=== PATIENT | male | born 1995 ===

== ENCOUNTER 2018-12-30 11:33 | Emergency (ER) | payer OTHER ==
[2018-12-30 11:53] VITALS: BP 148/67
--- NOTE | 2018-12-30 11:57 | UC ---
Skin Complaint HPI - HPI Summary HPI Summary: 23-year-old male who was stung by a bee in his right eye yesterday while at work. He works on a farm. He was sent by his employer today for recheck. He denies any difficulty breathing and no wheezing. - History of Current Complaint Chief Complaint: UCAllergicReaction Time Seen by Provider: 12/30/18 11:49 Stated Complaint: RIGHT EYE BEE STING (W/C) Hx Obtained From: Patient Onset/Duration: Sudden Onset Skin Exposure Onset/Duration: Days Ago - Patient was stung yesterday. Timing: Constant Onset Severity: Mild Current Severity: Mild Pain Intensity: 0 Location: Other - Right upper and lower eyelids. Character: Swelling Aggravating Factor(s): Nothing Alleviating Factor(s): Nothing, Cold Compresses, Other - Patient has not tried any medications however he has applied cold . Associated Signs & Symptoms: Positive: Negative - Allergy/Home Medications Allergies/Adverse Reactions: Allergies Allergy/AdvReac Type Severity Reaction Status Date / Time azithromycin [From Zithromax] Allergy Rash Verified 12/30/18 11:50 Penicillins Allergy Rash Verified 12/30/18 11:50 PMH/Surg Hx/FS Hx/Imm Hx Previously Healthy: Yes - Surgical History Surgical History: None - Family History Known Family History: Positive: Non-Contributory - Social History Alcohol Use: Daily Substance Use Type: None Smoking Status (MU): Heavy Every Day Tobacco Smoker Type: Cigarettes Amount Used/How Often: 1/2 PPD - Immunization History Vaccination Up to Date: Yes Review of Systems All Other Systems Reviewed And Are Negative: Yes Skin: Positive: Other - Swelling both right eyelids. No difficulty with vision. Is Patient Immunocompromised?: No Physical Exam Triage Information Reviewed: Yes Appearance: Well-Appearing, No Pain Distress, Well-Nourished Vital Signs: Initial Vital Signs Temp 97.8 F 12/30/18 11:50 Pulse 73 12/30/18 11:50 Resp 16 12/30/18 11:50 BP 148/67 12/30/18 11:50 Pulse Ox 99 12/30/18 11:50 Vital Signs Reviewed: Yes Eyes: Positive: Conjunctiva Clear, Other: - PERRLA, EOMI, right upper lower eyelids are mildly edematous. ENT: Positive: Pharynx normal, Uvula midline Neck: Positive: Supple, Nontender, No Lymphadenopathy Respiratory: Positive: Lungs clear, Normal breath sounds, No respiratory distress, No accessory muscle use Cardiovascular: Positive: RRR, No Murmur, Pulses Normal, Brisk Capillary Refill Skin: Positive: Other - See above notes Course/Dx - Course Course Of Treatment: Patient is comfortable here and in no distress. - Diagnoses Provider Diagnosis: Insect sting Discharge - Sign-Out/Discharge Documenting (check all that apply): Patient Departure All imaging exams completed and their final reports reviewed: No Studies - Discharge Plan Condition: Fair Disposition: HOME Patient Education Materials: Insect Bite or Sting (ED) Referrals: No Primary Care Phys,NOPCP [Primary Care Provider] - [facility] [Outside] Additional Instructions: May take Benadryl 25 mg to 50 mg every 6 hours over the next day or 2. Apply ice intermittently to the swollen area. Go to the emergency room if you develop any hives, difficulty breathing or wheezing. - Billing Disposition and Condition Condition: FAIR Disposition: Home
== END 2018-12-30 12:03 | disposition home or self-care (01) ==
LOC: UCCORT 11:33
DX: Z51.89 Encounter for other specified aftercare (principal); T63.441A Toxic effect of venom of bees, accidental (unintentional), initial encounter; Y92.79 Other farm location as the place of occurrence of the external cause; F17.210 Nicotine dependence, cigarettes, uncomplicated
CPT/HCPCS: 99201; G0463

== ENCOUNTER 2019-07-30 14:56 | Emergency (ER) | payer OTHER ==
[2019-07-30 15:18] VITALS: BP 147/72
--- NOTE | 2019-07-30 15:32 | UC ---
Lower Extremity/Ankle HPI - HPI Summary HPI Summary: Pt stated he rolled his right ankle yesterday at work. - History of Current Complaint Chief Complaint: UCLowerExtremity Stated Complaint: R ANKLE INJ Time Seen by Provider: 07/30/19 15:30 Hx Obtained From: Patient Onset/Duration: Sudden Onset, Lasting Days Severity Initially: Mild Severity Currently: Mild Pain Intensity: 0 - Allergies/Home Medications Allergies/Adverse Reactions: Allergies Allergy/AdvReac Type Severity Reaction Status Date / Time azithromycin [From Zithromax] Allergy Rash Verified 07/30/19 15:18 Penicillins Allergy Rash Verified 07/30/19 15:18 Home Medications: Home Medications Ibuprofen 1,200 mg PO Q6HR PRN 07/30/19 [History Confirmed 07/30/19] PMH/Surg Hx/FS Hx/Imm Hx Previously Healthy: Yes - Surgical History Surgical History: None - Family History Known Family History: Positive: Non-Contributory - Social History Occupation: Employed Full-time Alcohol Use: Daily Substance Use Type: None Smoking Status (MU): Heavy Every Day Tobacco Smoker Type: Cigarettes Amount Used/How Often: 1/2 PPD - Immunization History Vaccination Up to Date: Yes Review of Systems All Other Systems Reviewed And Are Negative: Yes Musculoskeletal: Positive: Arthralgia, Decreased ROM, Edema Is Patient Immunocompromised?: No Physical Exam Triage Information Reviewed: Yes Appearance: Well-Appearing, Well-Nourished, Pain Distress Vital Signs: Initial Vital Signs Temp 98.2 F 07/30/19 15:15 Pulse 89 07/30/19 15:15 Resp 14 07/30/19 15:15 BP 147/72 07/30/19 15:15 Pulse Ox 99 07/30/19 15:15 Vital Signs Reviewed: Yes Eye Exam: Normal ENT Exam: Normal Dental Exam: Normal Respiratory Exam: Normal Cardiovascular Exam: Normal Abdominal Exam: Normal Musculoskeletal: Positive: Edema @ - over right lateral maleolus Neurological Exam: Normal Psychological Exam: Normal Skin Exam: Normal Lower Extremity Course/Dx - Course Course Of Treatment: hx obtained, exam performed ,meds reviewed, xray obtained, treaed for mild sprain - Differential Dx/Diagnosis Differential Diagnosis/HQI/PQRI: Fracture (Closed), Sprain, Strain Provider Diagnosis: Right ankle sprain Discharge ED - Sign-Out/Discharge Documenting (check all that apply): Patient Departure All imaging exams completed and their final reports reviewed: Yes - Discharge Plan Condition: Stable Disposition: HOME Patient Education Materials: Ankle Sprain (ED) Referrals: No Primary Care Phys,NOPCP [Primary Care Provider] - Additional Instructions: 1. use the acewrap for compression 2. Ibuprofen and tylenol for pain and fever. 3. Follow up as needed. - Billing Disposition and Condition Condition: STABLE Disposition: Home - Attestation Statements Provider Attestation: I was available for consult. This patient was seen by the PAR[facility]. The patient was not presented to, seen by, or examined by me. -Jorge
== END 2019-07-30 15:54 | disposition home or self-care (01) ==
LOC: UCCORT 14:56
DX: S93.401A Sprain of unspecified ligament of right ankle, initial encounter (principal); X50.9XXA Other and unspecified overexertion or strenuous movements or postures, initial encounter; Y92.9 Unspecified place or not applicable; Z88.0 Allergy status to penicillin; Z88.1 Allergy status to other antibiotic agents; F17.210 Nicotine dependence, cigarettes, uncomplicated
CPT/HCPCS: 99212; G0463